=== PATIENT | female | born 1975 | race Caucasian/White ===

== ENCOUNTER 2023-07-07 06:40 | Emergency (ER) | payer BC ==
[~2023-07-07] VITALS: Ht 160 cm; Wt 74.8 kg
[2023-07-07 06:54] VITALS: BP_SYST 111; PULSE 106; RESP 19; TEMP 98.2; O2SAT 98
[2023-07-07] MEDS ORDERED: predniSONE 20 MG TABLET PO ONE (07:15)
[2023-07-07] MEDS ORDERED: BEN50 PO (07:17)
[2023-07-07] MEDS ORDERED: PRED20TA PO (07:17)
[2023-07-07] MEDS ORDERED: CLIN-142 PO (07:45)
[2023-07-07 07:52] VITALS: BP_SYST 111; PULSE 106; RESP 19; TEMP 98.2; O2SAT 98
[2023-07-07] MEDS ORDERED: cloNIDine HCL 0.1 MG TABLET ONE (10:16)
== END 2023-07-07 07:53 | disposition home or self-care (01) ==
LOC: SED 06:40
DX: T78.3XXA Angioneurotic edema, initial encounter (principal); T36.8X5A Adverse effect of other systemic antibiotics, initial encounter; J45.909 Unspecified asthma, uncomplicated; Z88.8 Allergy status to other drugs, medicaments and biological substances; Z79.899 Other long term (current) drug therapy
CPT/HCPCS: 99283; J7512